=== PATIENT | female | born 1980 | race Caucasian/White ===

== ENCOUNTER 2019-05-25 04:17 | Emergency (ER) | payer SELFPAY ==
[~2019-05-25] VITALS: Ht 162.6 cm; Wt 78.9 kg
[2019-05-25 04:22] VITALS: BP 113/71; Ht 162.6 cm; Wt 78.9 kg
== END 2019-05-25 05:18 | disposition home or self-care (01) ==
LOC: ED 04:17
DX: R10.13 Epigastric pain (principal); R11.0 Nausea; R19.7 Diarrhea, unspecified; Z90.49 Acquired absence of other specified parts of digestive tract; Z98.890 Other specified postprocedural states
CPT/HCPCS: J1885